=== PATIENT | female | born 1935 | race Caucasian/White ===

== ENCOUNTER 2020-10-14 15:40 | Emergency (ER) | payer MEDICARE, BC ==
--- NOTE | 2020-10-14 16:01 | EDM.PDOC ---
ED HPI GENERAL MEDICAL PROBLEM - General Chief Complaint: Neuro Symptoms/Deficits Stated Complaint: PASSED OUT MONDAY Time Seen by Provider: 10/14/20 15:45 Source of Information: Reports: Patient History Limitations: Reports: No Limitations - History of Present Illness INITIAL COMMENTS - FREE TEXT/NARRATIVE: Alka, 85-year-old female, presents for evaluation secondary of syncopal episode last Monday with persistent/intermittent dizziness prior to the event and continuing thereafter. She denies any recent high risk Covid activity as both her and her have been home for nearly the past 2 weeks as they attended [place] for him for an oncology appointment. She states she remained in the vehicle. They have had no visitors to their residence, and she states they were masks if they are out of their residence. She denies any change in activity, no change in intake stating she is focused on not getting dehydrated drinking water throughout the day and eating healthy. She had one loose stool with normal bowel movement thereafter. She has been checking her temperature and is remained afebrile. She has no true COVID-19 symptoms, but combination of little things as well as anxiety are stressing her for a Covid test to be performed. She denies any injury from her syncope, did not strike her head, nor did she injure any other body part/region. She tells me that she had to be convinced to present for the evaluation today. Onset Date: 10/11/20 Duration: Day(s):, Intermittent Location: Reports: Head Quality: Reports: Dull Severity: Moderate Improves with: Reports: None Worsens with: Reports: None. Denies: Movement Context: Reports: Activity Associated Symptoms: Reports: No Other Symptoms - Related Data Allergies Allergy/AdvReac Type Severity Reaction Status Date / Time No Known Drug Allergies Allergy Cannot Verified 10/14/20 16:05 Remember Home Meds: Home Meds Multivit with Calcium,Iron,Min [One Daily Women's] 1 tab PO DAILY 10/14/20 [History] Past Medical History - Past Health History Medical/Surgical History: Denies Medical/Surgical History HEENT History: Reports: Impaired Vision Cardiovascular History: Reports: None Respiratory History: Reports: None Gastrointestinal History: Reports: None Genitourinary History: Reports: None Musculoskeletal History: Reports: None Immunologic History: Reports: None - Infectious Disease History Infectious Disease History: Reports: None Social & Family History - Family History Family Medical History: No Pertinent Family History ED ROS GENERAL - Review of Systems Review Of Systems: See Below Constitutional: Reports: No Symptoms HEENT: Reports: Glasses Respiratory: Reports: No Symptoms Cardiovascular: Reports: Lightheadedness (Versus dizziness, syncope on 11 October) Endocrine: Reports: No Symptoms GI/Abdominal: Reports: Diarrhea (1 event with some cramping, then return to normal bowel movement) : Reports: No Symptoms Musculoskeletal: Reports: No Symptoms Skin: Reports: No Symptoms Neurological: Reports: Dizziness, Syncope (Monday the ). Denies: Confusion, Pre-Existing Deficit Psychiatric: Reports: Anxiety (Anxiety over local Covid illness as well as of friends in the past week) Hematologic/Lymphatic: Reports: No Symptoms Immunologic: Reports: No Symptoms ED EXAM, GENERAL - Physical Exam Exam: See Below Free Text/Narrative:: Alert, oriented, in no distress. HEENT is negative to discharge or deformity. PERRLA with no icterus nor injection. Nondilated funduscopy is benign 2 mm pupils, reactive. Nilan Barany testing is negative to induce any nystagmus bilaterally. Neck is soft supple with no rigidity no JVD, no bruit auscultated. [place] moist mucous membranes with no exudate nor erythema. Thorax is clear throughout with no wheezes nor any crackles noted. Cardiac is S1 is 2 there is grade 1/6 systolic murmur nonradiating. Abdomen is soft bowel sounds are present, there is no tenderness nor mass to palpation. No flank discomfort. +1 edema to the lower extremities with skin warm and dry. Radial pulses present bilaterally and correlates with apical heart rate. No dizziness is exhibited or complained of during the examination. She denies motion of the vehicle when she was drove here by her causing any deficits. She denies turning of her head nor position changes inducing any dizziness. Denies headache nor visual changes. #1 Interpretation EKG Date: 10/14/20 Time: 16:04 Rhythm: NSR Rate (Beats/Min): 68 [place]: Normal P-Wave: Present QRS: Normal ST-T: Normal QT: Normal Comparison: NA - No Prior EKG Course - Vital Signs Last Recorded V/S: Last Vital Signs Temp 36.4 C 10/14/20 15:51 Pulse 70 10/14/20 16:55 Resp 16 10/14/20 16:55 BP 123/90 10/14/20 16:55 Pulse Ox 98 10/14/20 16:55 - Orders/Labs/Meds Orders: Active Orders 24 hr Category Date Time Status EKG Documentation Completion [RC] ASDIRECTED Care 10/14/20 15:46 Active EKG 12 Lead [EK] Urgent Ther 10/14/20 15:45 Ordered Labs: Laboratory Tests 10/14/20 10/14/20 10/14/20 Range/Units 16:12 16:12 16:20 WBC 6.44 (5.00-10.00) 10^3/uL RBC 4.96 (3.80-5.50) 10^6/uL Hgb 15.0 (12.0-16.0) g/dL Hct 44.7 (37.0-47.0) % MCV 90.1 (82.0-92.0) fL MCH 30.2 (27.0-31.0) pg MCHC 33.6 (32.0-36.0) g/dL RDW 12.6 (11.5-14.5) % Plt Count 202 (150-400) 10^3/uL MPV 8.9 (7.4-10.4) fL Immature Gran % (Auto) 0.2 (0.0-5.0) % Neut % (Auto) 41.0 L (50.0-70.0) % Lymph % (Auto) 48.0 H (20.0-40.0) % [place] % (Auto) 7.0 (2.0-8.0) % Eos % (Auto) 3.0 (1.0-3.0) % Baso % (Auto) 0.8 (0.0-1.0) % Neut # (Auto) 2.65 (2.50-7.00) 10^3/uL Lymph # (Auto) 3.09 (1.00-4.00) 10^3/uL [place] # (Auto) 0.45 (0.10-0.80) 10^3/uL Eos # (Auto) 0.19 (0.10-0.30) 10^3/uL Baso # (Auto) 0.05 (0.00-0.10) 10^3/uL Immature Gran # (Auto) 0.01 (0.00-0.50) 10^3/uL Sodium 141 (136-145) mmol/L Potassium 4.3 (3.3-5.3) mmol/L Chloride 103 (98-115) mmol/L Carbon Dioxide 23.2 (21.0-32.0) mmol/L Anion Gap 19.1 H (5-15) mmol/L BUN 23 (6-25) mg/dL Creatinine 0.91 (0.51-1.17) mg/dL Est Cr Clr Drug Dosing 36.40 mL/min Estimated GFR (MDRD) 59 mL/min Glucose 105 H (75 - 99) mg/dL Calcium 9.4 (8.7-10.3) mg/dL Total Bilirubin 0.4 (0.2-1.0) mg/dL AST 18 (15-37) U/L ALT 19 (12-78) U/L Alkaline Phosphatase 70 (46-116) IU/L Creatine Kinase 30 (26-276) U/L CK-MB (CK-2) 0.60 (0.00-4.30) ng/mL Troponin I 0.04 (0.00-0.070) ng/mL Total Protein 7.9 (6.4-8.2) g/dL Albumin 3.88 (3.00-4.80) g/dL Specimen Type Urincc Urine Color Yellow (YELLOW) Urine Appearance Clear (CLEAR) Urine pH 5.0 (5.0-9.0) Ur Specific [place] >= 1.030 (1.005-1.030) Urine Protein Negative (NEGATIVE) mg/dL Urine Glucose (UA) Negative (NEGATIVE) mg/dL Urine Ketones Negative (NEGATIVE) mg/dL Urine Occult Blood Trace-lysed H (NEGATIVE) Urine Nitrite Negative (NEGATIVE) Urine Bilirubin Negative (NEGATIVE) Urine Urobilinogen 0.2 (0.2-1.0) E.U./dL Ur Leukocyte Esterase Negative (NEGATIVE) Urine RBC 0-5 (0-5) /HPF Urine WBC 5-10 H (0-5) /HPF Ur Epithelial Cells Few /LPF Urine Bacteria Few (NONE TO FEW) /HPF - Radiology Interpretation Free Text/Narrative:: 2 view chest x-ray shows normal cardiac silhouette with no atelectasis nor infiltrate noted. No acute cardiopulmonary process. Departure - Departure Time of Disposition: 16:52 Disposition: Home, Self-Care 01 Condition: Good Clinical Impression: Dizziness, Anxiety about health Syncope Qualifiers: Syncope type: unspecified Qualified Code(s): R55 - Syncope and collapse - Discharge Information *PRESCRIPTION DRUG MONITORING PROGRAM REVIEWED*: Not Applicable *COPY OF PRESCRIPTION DRUG MONITORING REPORT IN PATIENT EUGENIO: Not Applicable Instructions: Dizziness, [id number], Syncope, [id number] Referrals: Miranda Lawson MD [Primary Care Provider] - Forms: ED Department Discharge Additional Instructions: Testing completed today shows no specific findings for your dizziness or fainting episode. Your blood work is all in normal limits with negative testing for heart attack/heart injury. Your urine shows concentration, with no evidence of infection. This correlates with your BUN being on the high end of normal range. You would benefit from drinking more water and limiting your salt intake. Chest x-ray is normal with no evidence of bronchial irritation nor any enlargement of the heart size. EKG is negative for any cardiac involvement. Increasing your fluid intake, as well as moving slower. When you get up from lying position, take a few seconds to remain seated before you stand up and start walking. When you have been seated for some time, moving your legs about before you stand up will increase circulation. Then when you do stand up, stand still for a few seconds before you start out walking across the room. Limit your quick sudden movements may benefit this intermittent dizziness you have been experiencing. Call or return if symptoms return or worsen. Contact your clinic on Monday if symptoms are still occurring or in the event a Covid 19 test would be needed. Sepsis Event Note (ED) - Focused Exam Vital Signs: Vital Signs Temp Pulse Resp BP Pulse Ox 10/14/20 16:55 70 16 123/90 98 10/14/20 15:51 36.4 C 76 16 133/72 97 - Problem List & Annotations (1) Dizziness SNOMED Code(s): 068297821, 283087226 Code(s): R42 - DIZZINESS AND GIDDINESS Status: Acute Priority: High Current Visit: Yes (2) Syncope SNOMED Code(s): 445105999 Code(s): R55 - SYNCOPE AND COLLAPSE Status: Acute Priority: High Current Visit: Yes Qualifiers: Syncope type: unspecified Qualified Code(s): R55 - Syncope and collapse (3) Anxiety about health SNOMED Code(s): 099476056 Code(s): F41.8 - OTHER SPECIFIED ANXIETY DISORDERS Status: Acute Priority: High Current Visit: Yes - Problem List Review Problem List Initiated/Reviewed/Updated: Yes - My Orders Last 24 Hours: My Active Orders 10/14/20 15:45 EKG 12 Lead [EK] Urgent 10/14/20 15:46 EKG Documentation Completion [RC] ASDIRECTED - Assessment/Plan Last 24 Hours: My Active Orders 10/14/20 15:45 EKG 12 Lead [EK] Urgent 10/14/20 15:46 EKG Documentation Completion [RC] ASDIRECTED Plan: Testing completed today shows no specific findings for your dizziness or fainting episode. Your blood work is all in normal limits with negative testing for heart attack/heart injury. Your urine shows concentration, with no evidence of infection. This correlates with your BUN being on the high end of normal range. You would benefit from drinking more water and limiting your salt intake. Chest x-ray is normal with no evidence of bronchial irritation nor any enlar gement of the heart size. EKG is negative for any cardiac involvement. Increasing your fluid intake, as well as moving slower. When you get up from lying position, take a few seconds to remain seated before you stand up and start walking. When you have been seated for some time, moving your legs about before you stand up will increase circulation. Then when you do stand up, stand still for a few seconds before you start out walking across the room. Limit your quick sudden movements may benefit this intermittent dizziness you have been experiencing. Call or return if symptoms return or worsen. Contact your clinic on Monday if symptoms are still occurring or in the event a Covid 19 test would be needed.
--- NOTE | 2020-10-14 16:39 | CR ---
[id number] RAD/RAD Chest PA And Lateral EXAM: RAD Chest PA And Lateral INDICATION: SYNCOPE. COMPARISON: June 17, 2020. DISCUSSION: Cardiomediastinal silhouette is normal in size and contour. Lungs are clear. No pleural effusion or pneumothorax. IMPRESSION: Negative examination of the chest. Gregg Altamirano MD 10/14/20 [id number] Thank you for allowing us to participate in the care of your patient.
[2020-10-14 16:47] LABS: ANION GAP 19.1 mmol/L (5-15)
== END 2020-10-14 17:05 | disposition home or self-care (01) ==
LOC: KA.ED 15:40
DX: R55 Syncope and collapse (principal); F41.9 Anxiety disorder, unspecified; R42 Dizziness and giddiness
CPT/HCPCS: 36415; 71046; 80053; 81001; 82550; 82553; 84484; 85025; 93005; 99284-25

== ENCOUNTER 2022-05-24 20:18 | Observation (INO) | payer MEDICARE, BC ==
[2022-05-24] MEDS: Ondansetron 4 MG/2 ML SDV IVPUSH ONE (20:33)
[2022-05-24] MEDS: Sodium Chloride 0.9% 1,000 ML IV ONE (20:33)
[2022-05-24] MEDS: Sodium Chloride 0.9% 1,000 ML ONE (20:40)
[2022-05-24] MEDS: Ondansetron 4 MG/2 ML SDV ONE (20:41)
[2022-05-24] MEDS: Meclizine 25 MG Tab PO ONE ×2 (20:48→23:18)
[2022-05-24 20:56] LABS: ANION GAP 13.8 mmol/L (5-15); CHLORIDE,CL 105 mmol/L (98-107); SODIUM,NA 139 mmol/L (136-145)
[2022-05-24 20:57] LABS: ESTIMATED GFR 57 mL/min (>=60)
[2022-05-24] MEDS: Ondansetron 4 MG Tab.DIS PO ONE (23:18)
[2022-05-24] MEDS ORDERED: Ondansetron 4 MG Tab.DIS PO PRN (23:26)
[2022-05-25] MEDS: Menthol 7.6 MG Sugar Free Lozenge PO PRN (01:18)
[2022-05-25] MEDS: guaiFENesin/Dextromethorphan 100-10 MG/5 ML Soln 5 ML Cup PO PRN (02:46)
[2022-05-25] MEDS: Meclizine 25 MG Tab PO PRN (06:08)
== END 2022-05-25 14:25 | disposition home or self-care (01) ==
LOC: KA.ED 20:18 → KA.MS 23:02 → UNDOADMOB 23:05 → KA.MS 23:05
PROVIDERS: ADMIT Physician Assistant Surgical; ATTEND Internal Medicine
DX: R42 Dizziness and giddiness (principal); R11.2 Nausea with vomiting, unspecified; Z79.899 Other long term (current) drug therapy; Z20.822 Contact with and (suspected) exposure to COVID-19
CPT/HCPCS: 36415; 70450; 71045; 80053; 81001; 85025; 96361; 96374; 97140-GP; 97161-GP; 99217; 99220; 99285-25; A9270-GY; G0378; J2405; J7030; U0002

== ENCOUNTER 2023-03-02 14:12 | Emergency (ER) | payer MEDICARE, BC ==
[2023-03-02] MEDS ORDERED: Sodium Chloride 0.9% 10 ML Syringe FLUSH PRN (14:18)
[2023-03-02] MEDS: Sodium Chloride 0.9% 1,000 ML IV ONE (14:52)
[2023-03-02] MEDS: Meclizine 25 MG Tab PO ONE (14:53)
[2023-03-02] MEDS: Ondansetron 4 MG/2 ML SDV IVPUSH ONE (14:53)
[2023-03-02 15:47] LABS: ANION GAP 11.4 mmol/L (5-15); CHLORIDE,CL 106 mmol/L (98-107); ESTIMATED GFR 74 mL/min (>=60); SODIUM,NA 137 mmol/L (136-145)
== END 2023-03-02 16:10 | disposition home or self-care (01) ==
LOC: KA.ED 14:12
DX: H81.10 Benign paroxysmal vertigo, unspecified ear (principal)
CPT/HCPCS: 36415; 70450; 80053; 84484; 85025; 85610; 85730; 93010; 96361; 96374; 99284; 99284-25; A9270-GY; J2405; J7030

== ENCOUNTER 2024-03-12 09:39 | Day surgery (SDC) | payer MEDICARE, BC ==
[2024-03-12] MEDS: Lactated Ringers 1,000 ML IV SCH (09:57)
[2024-03-12] MEDS ORDERED: Sodium Chloride 0.9% 10 ML Syringe FLUSH PRN (10:00)
[2024-03-12] MEDS ORDERED: Midazolam 1 MG/ML 2 ML SDV ONE (10:37)
[2024-03-12] MEDS ORDERED: Propofol 200 MG/20 ML SDV ONE (10:37)
== END 2024-03-12 13:18 | disposition home or self-care (01) ==
LOC: KA.SDS 09:39
PROVIDERS: ATTEND Surgery
DX: K56.699 Other intestinal obstruction unspecified as to partial versus complete obstruction (principal); K57.30 Diverticulosis of large intestine without perforation or abscess without bleeding; K62.89 Other specified diseases of anus and rectum; N39.3 Stress incontinence (female) (male); Z79.899 Other long term (current) drug therapy
CPT/HCPCS: 00811; 99100; J2250; J2704; J3490; J7120